=== PATIENT | male | born 1965 | race Caucasian/White ===

== ENCOUNTER 2017-11-04 22:35 | Emergency (ER) | payer OTHER ==
[2017-11-04 22:47] VITALS: BP 136/78; PULSE 100; RESP 16; TEMP 97.3; O2SAT 94
[2017-11-04] MEDS ORDERED: ACETAMINOPHEN/HYDROcodone 325 MG/5 MG TAB PO ONE (23:00)
[2017-11-04] MEDS ORDERED: TETANUS/DIPHTHERIA TOXOID ADULT 0.5 ML VIAL IM ONE (23:00)
[2017-11-04] MEDS ORDERED: LIDOCAINE 1%/EPINEPHrine 1:100,000 SOLN 20 ML VIAL ONE (23:00)
[2017-11-04] MEDS ORDERED: LIDOCAINE 1%/EPINEPHrine 1:100,000 SOLN 20 ML VIAL INFIL ONE (23:00)
[2017-11-04 23:10] VITALS: BP 136/78; PULSE 100; RESP 16; TEMP 97.3; O2SAT 94
--- NOTE | 2017-11-04 23:14 | PD ---
HPI Chief Complaint: Fall Time Seen by Provider: 22:50 Travel History International Travel<30 days: No Contact w/Intl Traveler<30days: No Traveled to known affect area: No History of Present Illness HPI 52-year-old male complains of facial pain and facial laceration. Patient slipped and fell on the face this evening. Patient denies loss of consciousness. Patient denies any headache or neck pain. Patient complained of facial pain localized to the forehead, nose and lips. Patient states the pain is sharp burning pain. Patient denies any pain radiation. Patient denies any visual change. Patient denies any chest pain or shortness of breath. Patient denies abdominal pain. Patient denies any back pain. Patient complains of abrasion to left wrist area. Patient denies any wrist pain. Patient is not up-to-date with TD booster. PFSH Social History Tobacco Use: No Allergies-Medications (Allergen,Severity, Reaction): Coded Allergies: No Known Allergies (Unverified , 11/04/17) Reported Meds & Prescriptions Reported Meds & Active Scripts Active [place] (Hydrocodone-Acetaminophen) 5 Mg-325 Mg Tab 1 Tab PO Q6H PRN Augmentin (Amoxicillin-Clavulanate) 875-125 Mg Tab 1 Tab PO BID Review of Systems General / Constitutional: No: Fever Eyes: No: Visual changes HENT: No: Headaches Cardiovascular: No: Chest Pain or Discomfort Respiratory: No: Shortness of Breath Gastrointestinal: No: Abdominal Pain Genitourinary: No: Dysuria Musculoskeletal: No: Pain Skin: No Rash Neurologic: No: Weakness Psychiatric: No: Depression Endocrine: No: Polydipsia Hematologic/Lymphatic: No: Easy Bruising Physical Exam Narrative GENERAL: Well-nourished, well-developed patient. SKIN: Focused skin assessment warm/dry. HEAD: Normocephalic. EYES: No scleral icterus. No injection or drainage. EOMI NECK: Supple, trachea midline. No JVD or lymphadenopathy. CARDIOVASCULAR: Regular rate and rhythm without murmurs, gallops, or rubs. RESPIRATORY: Breath sounds equal bilaterally. No accessory muscle use. GASTROINTESTINAL: Abdomen soft, non-tender, nondistended. MUSCULOSKELETAL: No cyanosis, or edema. BACK: Nontender without obvious deformity. No CVA tenderness. Patient has 6 cm laceration to the right upper eyelid below the right eyebrow. Minor bleeding noted. Patient has 1 cm laceration to the region of the nose. Minor bleeding noted. Patient has 1 cm laceration in the mucous membrane of the upper lip. Patient has 1 cm laceration on mucous membrane of the lower lip. No active bleeding. No evidence of broken tooth. Soft tissue swelling tenderness of the nose. No septal hematoma. Patient has soft tissue swelling tenderness of the upper gum. Data Data Last Documented VS Vital Signs Date Time Temp Pulse Resp B/P (MAP) Pulse Ox O2 Delivery O2 Flow Rate FiO2 11/05/17 01:22 16 11/05/17 01:01 11/05/17 00:31 72 99 Room Air 11/04/17 23:[address] Facial Bones W/O Iv Cont (11/04/17 22:58) Tetanus/Diphtheria Tox Adult (Tetanus/Di (11/04/17 23:00) Acetamin-Hydrocod 325-5 Mg ([place] 5-325 (11/04/17 23:00) Lidocai-Epi 1%-1:100,000 Inj (Xylocaine- (11/04/17 23:00) Lidocai-Epi 1%-1:100,000 Inj (Xylocaine- (11/04/17 23:00) Amoxicil-Clavulanate (Augmentin) (11/05/17 00:15) Ketorolac Inj (Toradol Inj) (11/05/17 00:15) Ed Discharge Order (11/05/17 00:15) Ct Brain W/O Iv Contrast(Rout) (11/05/17 00:30) MDM Medical Decision Making Medical Screen Exam Complete: Yes Emergency Medical Condition: Yes Interpretation(s) Last Impressions Maxillofacial CT 11/04/17 1225 Signed Impressions: Service Date/Time: Saturday, November 04, 2017 23:03 - CONCLUSION: 1. Multiple facial fractures including a comminuted fracture through the nasal bone predominantly on the left, comminuted fracture through the anterior, posterior and posterolateral aspects of the right maxillary antra extending into the maxillary ridge and displaced fractures through the pterygoid plates bilaterally. 2. There is also a nondisplaced fracture through the superolateral aspect of the left orbital wall at the footplate of the zygomatic arch with an additional nondisplaced fracture through the mid body of the left zygomatic arch. Iván Collins MD Differential Diagnosis Differential diagnosis including laceration, fracture. Narrative Course 52-year-old male with facial injury. Status post fall. Td booster given. Lortab 5/325, 1 tablet p.o. given. Augmentin 875 1 tablet p.o. given now. Procedures Procedure Narrative LACERATION LOCATION: Right upper eyelid and nose LENGTH: 7 cm NUMBER OF STITCHES/OSCAR: 13 REPAIR: The area of the laceration was prepped with Betadine and sterilely draped. The laceration was infiltrated with 1% lidocaine with epi. The wound was copiously irrigated and explored without evidence of foreign body, tendon injury or neurovascular injury. The wound was closed using 5-0 Prolene. This was a single layer repair. A sterile dressing was applied. The patient was advised to keep the dressing clean and dry. Patient tolerated the procedure well. Diagnosis Primary Impression: Face lacerations Qualified Codes: S01.81XA - Laceration without foreign body of other part of head, initial encounter Additional Impressions: Nasal bone fractures Qualified Codes: S02.2XXB - Fracture of nasal bones, initial encounter for open fracture Left orbit fracture Qualified Codes: S02.82XA - Fracture of other specified skull and facial bones , left side, initial encounter for closed fracture Closed right maxillary fracture Qualified Codes: S02.40CA - Maxillary fracture, right side, initial encounter for closed fracture Patient Instructions: General Instructions Additional Instructions: Wound care daily. Head trauma instructions given. Take medication as directed. Follow-up with maxillofacial surgeon in a.m. Med/Other Pt SpecificInfo: Prescription(s) given Scripts Hydrocodone-Acetaminophen ([place]) 5 Mg-325 Mg Tab 1 TAB PO Q6H Y for PAIN, #12 TAB 0 Refills Prov: Mainor Engle MD 11/05/17 Amoxicillin-Clavulanate (Augmentin) 875-125 Mg Tab 1 TAB PO BID for Infection, #14 TAB 0 Refills Prov: Mainor Engle MD 11/05/17 Disposition: 01 DISCHARGE HOME Condition: Stable Mainor Engle MD November 04, 2017 23:14
--- NOTE | 2017-11-04 23:36 | RADRPT ---
EXAM DATE/TIME: 11/04/2017 23:03 [facility] COMPARISON: No previous studies available for comparison. INDICATIONS : Trauma, fall. RADIATION DOSE: 29.88 CTDIvol (mGy) MEDICAL HISTORY : None SURGICAL HISTORY : None. ENCOUNTER: Initial ACUITY: 1 day PAIN SCORE: 5/10 LOCATION: facial TECHNIQUE: Volumetric scanning of the facial bones was performed. Using automated exposure control and adjustme nt of the mA and/or kV according to patient size, radiation dose was kept as low as reasonably achiev able to obtain optimal diagnostic quality images. DICOM format image data is available electronicall y for review and comparison. FINDINGS: ORBITS: Nondisplaced fracture through the anterolateral aspect of the left orbital wall at the junction with the footplate of the zygomatic arch. Orbital everett and globes are otherwise intact. No radiopaque for eign bodies. NASAL BONE: Comminuted fracture of the nasal bones bilaterally, slightly worse on the left ZYGOMATIC ARCHES: Nondisplaced fractures at the anterior footplate and mid body of the left zygomatic arch. Right zygom atic arch is intact. SINUSES: Comminuted fracture through the anterior, posterolateral and probable posterior everett of the right ma xillary antra with intrasinus hemorrhage. The fracture extends down to the maxillary ridge. Left maxi llary sinus appears to be intact. There are fractures of the pterygoid plates bilaterally. NASAL CAVITY: The nasal septum is intact and midline. The lacrimal ducts are intact. SOFT TISSUES: No radiopaque foreign bodies seen. No soft-tissue swelling is seen. INTRACRANIAL: No intracranial air seen. CRIBIFORM PLATE: Grossly intact. CONCLUSION: 1. Multiple facial fractures including a comminuted fracture through the nasal bone predominantly on the left, comminuted fracture through the anterior, posterior and posterolateral aspects of the right maxillary antra extending into the maxillary ridge and displaced fractures through the pterygoid trey sandro bilaterally. 2. There is also a nondisplaced fracture through the superolateral aspect of the left orbital wall at the footplate of the zygomatic arch with an additional nondisplaced fracture through the mid body of the left zygomatic arch. Iván Collins MD on November 04, 2017 at 23:27 Board Certified Radiologist. This report was verified electronically.
[2017-11-05] MEDS ORDERED: NORC5TAB PO (00:01)
[2017-11-05] MEDS ORDERED: AUGM875T3 PO (00:01)
[2017-11-05] MEDS ORDERED: KETOROLAC TROMETHAMINE 60 MG/2 ML (IM) VIAL IM ONE (00:15)
[2017-11-05] MEDS ORDERED: AMOXICILLIN/CLAVULANATE K 875 MG TAB PO ONE (00:15)
[2017-11-05 00:31] VITALS: BP 141/89; PULSE 72; RESP 16; O2SAT 99
--- NOTE | 2017-11-05 00:49 | RADRPT ---
EXAM DATE/TIME: 11/05/2017 00:30 [facility] COMPARISON: No previous studies available for comparison. INDICATIONS : Trauma, fall. Worsening cephalgia and dizziness. RADIATION DOSE: 53.33 CTDIvol (mGy) MEDICAL HISTORY : None SURGICAL HISTORY : None. ENCOUNTER: Initial ACUITY: 1 day PAIN SCALE: 7/10 LOCATION: cranial TECHNIQUE: Multiple contiguous axial images were obtained of the head. Using automated exposure control and adj ustment of the mA and/or kV according to patient size, radiation dose was kept as low as reasonably a chievable to obtain optimal diagnostic quality images. DICOM format image data is available electro nically for review and comparison. FINDINGS: CEREBRUM: The ventricles are normal for age. No evidence of midline shift, mass lesion, hemorrhage or acute in farction. No extra-axial fluid collections are seen. POSTERIOR FOSSA: The cerebellum and brainstem are intact. The 4th ventricle is midline. The cerebellopontine angle i s unremarkable. EXTRACRANIAL: Extensive facial fractures. Please see CT scan of the facial bones for details. SKULL: The calvaria is intact. No evidence of skull fracture. CONCLUSION: 1. Extensive facial fractures completely characterized on CT scan of facial bones. 2. Otherwise negative. No acute intracranial process, trauma or skull fracture. Iván Collins MD on November 05, 2017 at 0:46 Board Certified Radiologist. This report was verified electronically.
[2017-11-05 01:22] VITALS: RESP 16
== END 2017-11-05 01:19 | disposition home or self-care (01) ==
LOC: PHED 22:35
DX: S01.111A Laceration without foreign body of right eyelid and periocular area, initial encounter (principal); S01.511A Laceration without foreign body of lip, initial encounter; S02.2XXB Fracture of nasal bones, initial encounter for open fracture; S02.82XA Fracture of other specified skull and facial bones, left side, initial encounter for closed fracture; S02.40CA Maxillary fracture, right side, initial encounter for closed fracture; S60.812A Abrasion of left wrist, initial encounter; W01.0XXA Fall on same level from slipping, tripping and stumbling without subsequent striking against object, initial encounter; Z23 Encounter for immunization
CPT/HCPCS: 12002; 70450; 70486; 90471; 90714; 96372; 99283; J1885